=== PATIENT | female | born 1985 | race Two or more races ===

== ENCOUNTER 2016-06-05 04:07 | Emergency (ER) | payer MEDICAID ==
[~2016-06-05] VITALS: Ht 152.4 cm; Wt 52.2 kg
[2016-06-05 04:40] LABS: Urine RBC None Seen /hpf (0 - 4)
[2016-06-05 04:49] LABS: Basophils # (auto) 0 uL; Basophils % (auto) 0.4 % (0.0-2.0); Eosinophils # (auto) 0.1 uL; Eosinophils % (auto) 1.3 % (0.0-7.0); Hematocrit 43.3 % (36.0-46.0); Hemoglobin 14.3 g/dL (12.2-16.2); Lymphocytes % (auto) 36.8 % (10.0-50.0); Mean Corpuscular Hemoglobin 30.1 pg (28.0-32.0); Mean Corpuscular Hgb Conc. 33.2 g/dL (32.0-36.0); Mean Corpuscular Volume 90.8 fL (80.0-100.0); Mean Platelet Volume 7.9 fL (7.4-10.4); Monocytes # (auto) 0.6 uL; Monocytes % (auto) 7.4 % (0.0-12.0); Neutrophils # (auto) 4.4 uL; Neutrophils % (auto) 54.1 % (37.0-80.0); Platelet Count (auto) 312 10^3/uL (140-450); Red Cell Distribution Width 12.9 % (11.6-16.0); White Blood Cell 8.1 10^3/uL (4.4-10.8)
[2016-06-05 04:52] LABS: Urine Bilirubin Negative (Negative); Urine Blood Negative /uL (Negative); Urine Color Colorless (Yellow); Urine Glucose Normal (Normal); Urine Ketone Negative (Negative); Urine Nitrite Negative (Negative); Urine Squamous Epithelial Cell FEW /hpf (<5); Urine Urobilinogen Normal (Negative)
[2016-06-05 05:06] LABS: Albumin 4.3 g/dL (3.4-5.0); BUN/Creatinine Ratio 12.3; Calcium 8.9 mg/dL (8.5-10.1); Magnesium 2.2 mg/dL (1.6-2.6); Potassium 3.5 mmol/L (3.5-5.1)
[2016-06-05 05:09] LABS: Bilirubin, Total 0.3 mg/dL (0.2-1.0); Total Protein 7.9 g/dL (6.4-8.2)
[2016-06-05] MEDS ORDERED: SODIUM CHLORIDE 0.9% 1,000 ML IV ONE (08:15)
[2016-06-05 11:22] VITALS: BP 97/66
== END 2016-06-05 13:44 | disposition home or self-care (01) ==
LOC: ER 04:12
DX: M79.602 Pain in left arm (principal); R20.0 Anesthesia of skin; R42 Dizziness and giddiness; M54.2 Cervicalgia; R10.9 Unspecified abdominal pain; R53.1 Weakness
CPT/HCPCS: 36415; 70450; 72125; 80053; 81001; 82150; 83690; 83735; 84484; 84702; 85025; 93005; 94761; 96360; 99285; J7030